=== PATIENT | female | born 1980 | race Caucasian/White ===

== ENCOUNTER 2016-08-27 13:30 | Emergency (ER) | payer OTHER ==
[~2016-08-27] VITALS: Ht 167.6 cm; Wt 100.0 kg
[~2016-08-27 13:30] MED LIST: BENZ1TAB10 PO; DIVA500T35 PO; GLIP10 PO; HYD25 PO; METF500T4 PO; PALI156D IM; PROP10 PO; VENL-68 PO
[2016-08-27] MEDS ORDERED: ALBUTEROL SULFATE 2.5 MG/0.5 ML NEB SOLUTION NEB ONE (14:45)
[2016-08-27] MEDS ORDERED: IPRATROPIUM BROMIDE 0.5 MG/2.5 ML NEB SOLUTION NEB ONE (14:45)
[2016-08-27] MEDS ORDERED: 0.9% SODIUM CHLORIDE 5 ML NEB SOLUTION NEB ONE (14:57)
[2016-08-27 15:23] VITALS: BP 102/49
== END 2016-08-27 15:49 | disposition home or self-care (01) ==
LOC: EMS 13:31
DX: J45.909 Unspecified asthma, uncomplicated (principal); E11.9 Type 2 diabetes mellitus without complications; F17.210 Nicotine dependence, cigarettes, uncomplicated
CPT/HCPCS: 82962; 94640; 99283; 99406; J7613

== ENCOUNTER 2016-11-02 17:38 | Emergency (ER) | payer OTHER ==
[~2016-11-02] VITALS: Ht 170.2 cm; Wt 100.0 kg
[2016-11-02] MEDS ORDERED: DIVA125T2 PO (18:05)
[2016-11-02] MEDS ORDERED: HYDR-3110 PO (18:05)
[2016-11-02] MEDS ORDERED: METF500T4 PO (18:05)
[2016-11-02] MEDS ORDERED: GLIP5 PO (18:05)
[2016-11-02 18:07] LABS: GLUCOSE,POINT OF CARE 285 MG/DL (70-110)
[2016-11-02] MEDS ORDERED: ACETAMINOPHEN/CODEINE 300-30 MG TABLET PO ONE (19:15)
[2016-11-02] MEDS ORDERED: POVIDONE-IODINE 10% 15 ML SOLUTION UD TP ONE (19:15)
[2016-11-02] MEDS ORDERED: BACITRACIN 0.9 GM PACKET OINTMENT TP ONE (19:15)
[2016-11-02 19:45] VITALS: BP 133/82
== END 2016-11-02 19:45 | disposition home or self-care (01) ==
LOC: EMS 17:39
DX: S31.030A Puncture wound without foreign body of lower back and pelvis without penetration into retroperitoneum, initial encounter (principal); E11.9 Type 2 diabetes mellitus without complications; F17.210 Nicotine dependence, cigarettes, uncomplicated; F20.9 Schizophrenia, unspecified; I10 Essential (primary) hypertension; W01.0XXA Fall on same level from slipping, tripping and stumbling without subsequent striking against object, initial encounter; Y93.01 Activity, walking, marching and hiking; Y92.89 Other specified places as the place of occurrence of the external cause; Y99.9 Unspecified external cause status
CPT/HCPCS: 82962; 99284

== ENCOUNTER 2017-01-03 13:45 | Emergency (ER) | payer OTHER ==
[~2017-01-03] VITALS: Ht 167.6 cm; Wt 95.0 kg
[~2017-01-03 13:45] MED LIST changes: -BENZ1TAB10 PO; +DIVA125T2 PO; -DIVA500T35 PO; -GLIP10 PO; +GLIP5 PO; -HYD25 PO; +HYDR-3110 PO; -PALI156D IM; -PROP10 PO; -VENL-68 PO
[2017-01-03] MEDS ORDERED: VENL25TA47 PO (14:35)
[2017-01-03 14:36] LABS: GLUCOSE,POINT OF CARE 160 MG/DL (70-110)
[2017-01-03] MEDS ORDERED: CefTRIAXone 1 GM/DEXTROSE 50 ML IV ONE (16:15)
[2017-01-03] MEDS ORDERED: SODIUM CHLORIDE 0.9% 1,000 ML IV ONE (16:15)
[2017-01-03 16:39] LABS: BASOPHILS % (AUTO) 0.4 % (0.0-2.0); EOSINOPHILS % (AUTO) 4.7 % (1.0-6.0); HEMATOCRIT 41.8 % (36-46); HEMOGLOBIN 14.4 g/dL (12.0-16.0); LYMPHOCYTES # (AUTO) 3.4 K/uL (1.0-4.8); MEAN CORPUSCULAR HGB CONC 34.5 G/dL (31.0-37.0); MEAN CORPUSCULAR VOLUME 90 fL (80-100); MONOCYTES # (AUTO) 0.7 K/uL (0.1-1.0); MONOCYTES % (AUTO) 8.6 % (2.0-9.0); NEUTROPHILS # (AUTO) 3.3 K/uL (1.8-7.7); NEUTROPHILS % (AUTO) 42.3 % (40.0-70.0); PLATELET COUNT (AUTO) 353 K/uL (150-450); RED BLOOD CELL COUNT(AUTO) 4.66 MIL/uL (4.00-5.20); RED CELL DISTRIBUTION WIDTH 12.3 % (11.5-14.5); WHITE BLOOD COUNT (AUTO) 7.8 K/uL (4.5-11.0)
[2017-01-03 16:48] LABS: ALBUMIN 3.6 g/dL (3.4-5.0); CREATININE 1.03 mg/dL (0.60-1.30); POTASSIUM 4.1 mmol/L (3.5-5.1)
[2017-01-03 16:55] LABS: CALCIUM, TOTAL 9.6 mg/dL (8.8-10.5)
[2017-01-03 17:10] LABS: BILIRUBIN,TOTAL 0.1 mg/dL (0.1-1.0)
[2017-01-03 18:02] VITALS: BP 109/64
== END 2017-01-03 18:25 | disposition home or self-care (01) ==
LOC: EMS 13:47
DX: R19.7 Diarrhea, unspecified (principal); L08.9 Local infection of the skin and subcutaneous tissue, unspecified; R50.9 Fever, unspecified; E11.9 Type 2 diabetes mellitus without complications; F17.210 Nicotine dependence, cigarettes, uncomplicated
CPT/HCPCS: 36415; 80053; 82962; 85025; 87040; 96365; 99284; J0696; J7030

== ENCOUNTER 2017-01-22 21:34 | Emergency (ER) | payer OTHER ==
[~2017-01-22] VITALS: Ht 167.6 cm; Wt 100.0 kg
[~2017-01-22 21:34] MED LIST changes: +VENL25TA47 PO
[2017-01-22] MEDS ORDERED: SIMV-259 PO (21:50)
[2017-01-22 21:54] VITALS: BP 122/74
[2017-01-22] MEDS ORDERED: HydrOXYzine HCL 10 MG TABLET PO ONE (22:15)
[2017-01-23 11:36] LABS: GLUCOSE,POINT OF CARE 173 MG/DL (70-110)
== END 2017-01-22 23:07 | disposition home or self-care (01) ==
LOC: EMS 21:36
DX: F25.9 Schizoaffective disorder, unspecified (principal); M54.9 Dorsalgia, unspecified; F31.9 Bipolar disorder, unspecified; E11.9 Type 2 diabetes mellitus without complications; F17.210 Nicotine dependence, cigarettes, uncomplicated
CPT/HCPCS: 82962; 99284

== ENCOUNTER 2017-02-09 14:11 | Emergency (ER) | payer OTHER ==
[~2017-02-09] VITALS: Ht 170.2 cm; Wt 100.0 kg
[~2017-02-09 14:11] MED LIST changes: +SIMV-259 PO
[2017-02-09] MEDS ORDERED: PALI117D IM (14:59)
[2017-02-09 15:09] LABS: GLUCOSE,POINT OF CARE 82 MG/DL (70-110)
[2017-02-09 17:16] VITALS: BP 126/84
== END 2017-02-09 17:38 | disposition home or self-care (01) ==
LOC: EMS 14:17
DX: F31.9 Bipolar disorder, unspecified (principal); E11.9 Type 2 diabetes mellitus without complications; F20.9 Schizophrenia, unspecified; F17.210 Nicotine dependence, cigarettes, uncomplicated; Z76.0 Encounter for issue of repeat prescription
CPT/HCPCS: 82962; 99284

== ENCOUNTER 2019-12-08 12:12 | Emergency (ER) | payer OTHER ==
[~2019-12-08] VITALS: Ht 172.7 cm; Wt 100.0 kg
[~2019-12-08 12:12] MED LIST changes: -HYDR-3110 PO; +HYDR-3831 PO; +METF-960 PO; -METF500T4 PO; +PALI117D IM
[2019-12-08 12:17] VITALS: BP 149/75
[2019-12-08] MEDS ORDERED: METF-960 PO (12:21)
== END 2019-12-08 14:49 | disposition left against medical advice (07) ==
LOC: EMS 12:16
DX: R42 Dizziness and giddiness (principal); Z53.21 Procedure and treatment not carried out due to patient leaving prior to being seen by health care provider

== ENCOUNTER 2020-05-05 21:58 | Emergency (ER) | payer OTHER ==
[~2020-05-05] VITALS: Ht 167.6 cm; Wt 100.0 kg
[~2020-05-05 21:58] MED LIST changes: -HYDR-3831 PO; -VENL25TA47 PO
[2020-05-05 22:15] LABS: GLUCOSE,POINT OF CARE 257 MG/DL (70-110)
[2020-05-05 22:58] LABS: COVID AG,FIA SOURCE NASOPHARYNGEAL
[2020-05-05 23:02] LABS: BASOPHILS % (AUTO) 0.1 % (0.0-2.0); EOSINOPHILS % (AUTO) 0.5 % (1.0-6.0); HEMATOCRIT 45.3 % (36-46); HEMOGLOBIN 15.9 g/dL (12.0-16.0); LYMPHOCYTES # (AUTO) 0.9 K/uL (1.0-4.8); LYMPHOCYTES % (AUTO) 9.8 % (22.0-44.0); MEAN CORPUSCULAR HEMOGLOBIN 30.7 pg (26.0-34.0); MEAN CORPUSCULAR VOLUME 88 fL (80-100); MONOCYTES % (AUTO) 10.2 % (2.0-9.0); NEUTROPHILS # (AUTO) 7.5 K/uL (1.8-7.7); NEUTROPHILS % (AUTO) 79.4 % (40.0-70.0); PLATELET COUNT (AUTO) 262 K/uL (150-450); RED BLOOD CELL COUNT(AUTO) 5.17 MIL/uL (4.00-5.20); RED CELL DISTRIBUTION WIDTH 12.8 % (11.5-14.5)
[2020-05-05 23:24] LABS: ANION GAP 8 mmol/L (8-16); CALCIUM, TOTAL 8.9 mg/dL (8.8-10.5); CARBON DIOXIDE 30 mmol/L (22-29); CHLORIDE 95 mmol/L (98-107); CREATININE 1.17 mg/dL (0.60-1.30); GLOMERULAR FILTR. RATE CALC 51 mL/min (>60); GLUCOSE,RANDOM 272 mg/dL (70-110); POTASSIUM 3.4 mmol/L (3.5-5.1); SODIUM SERUM 133 mmol/L (136-145); UREA NITROGEN, BLOOD 22 mg/dL (7-18)
[2020-05-05] MEDS ORDERED: FAMOTIDINE 10 MG/ML 2 ML VIAL IVP ONE (23:30)
[2020-05-05] MEDS ORDERED: MORPHINE SULFATE 2 MG/ML SYRINGE IVP ONE (23:30)
[2020-05-05] MEDS ORDERED: ONDANSETRON HCL 4 MG/2 ML VIAL IVP ONE (23:30)
[2020-05-05] MEDS ORDERED: MAG HYDROX/AL HYDROX/SIMETH 30 ML SUSP UDCUP PO ONE (23:30)
[2020-05-05 23:40] LABS: ALANINE AMINOTRANSFERASE 28 U/L (12-78); ALBUMIN 4.1 g/dL (3.4-5.0); ALKALINE PHOSPHATASE 67 U/L (46-116); ASPARTATE AMINOTRANSFERASE 23 U/L (15-37); BILIRUBIN,TOTAL 0.5 mg/dL (0.1-1.0); HCG,QUANTITATIVE < 1 mIU/mL (0-6); LIPASE 94 U/L (73-393); TOTAL PROTEIN, SERUM 8.3 g/dL (6.4-8.2)
[2020-05-06] MEDS ORDERED: SODIUM CHLORIDE 0.9% 1,000 ML IV ONE
[2020-05-06 01:08] VITALS: BP 170/90
== END 2020-05-06 02:10 | disposition home or self-care (01) ==
LOC: EMS 21:58
DX: E86.0 Dehydration (principal); R11.2 Nausea with vomiting, unspecified; F31.9 Bipolar disorder, unspecified; E11.9 Type 2 diabetes mellitus without complications; E78.00 Pure hypercholesterolemia, unspecified; F20.9 Schizophrenia, unspecified; F17.210 Nicotine dependence, cigarettes, uncomplicated; Z20.822 Contact with and (suspected) exposure to COVID-19; Z79.84 Long term (current) use of oral hypoglycemic drugs
CPT/HCPCS: 80053; 82962; 83690; 84702; 85025; 87426; 96361; 96374; 96375; 99284; J2270; J2405; J3490; J7030